=== PATIENT | female | born 1995 | race Caucasian/White ===

== ENCOUNTER 2016-11-29 18:34 | Emergency (ER) | payer BC, OTHER ==
[2016-11-29 18:42] VITALS: BMI 29.6
--- NOTE | 2016-11-29 19:38 | DR.GENAD ---
HPI - PCP Primary Care Physician: Broderick - Complaint/Symptoms Chief Complaint Doctors Comments: patient c/o right ear pain and rhinorrhea. Chief Complaint:: "I have been having an earache today really bad today. I have had some sinus issues for a while now though." Self Treatment fo Chief Complaint: Pt states that she has some rx eardrops and that she has had sinus issues for a while now. She states that she thinks she has had on and off fever - Source History Provided: Patient - Mode of Arrival Mode of Arrival: Ambulatory - Timing Onset of Chief Complaint: 11/29/16 PMH - PMH Past Medical History: No Past Surgical History: No - Family History History of Family Medical Conditions: Yes Family Medical History: Diabetes Mellitus, Hypertension - Social History Does patient currently use any type of tobacco product: No Have you used tobacco products in the last 12 months: No Type of Tobacco Use: None Does any household member use tobacco: No Alcohol Use: None Do you use any recreational Drugs:: No Lives With: Family Lives Where: Home - infectious screening In the last 2 months have you had wt loss of >10#?: NO Have you had fever, night sweats or hemotysis?: No Have you traveled outside the country in the last 6 months?: No Isolation: Standard ROS - Review of Systems Eyes: No Symptoms Reported ENTM: No Symptoms Reported Respiratoy: No Symptoms Reported Cardiovascular: No Symptoms Reported Gastrointestinal/Abdominal: No Symptoms Reported Genitourinary: No Symptoms Reported Neurological: No Symptoms Reported Musculoskeletal: No Symptoms Reported Integumentary: No Symptoms Reported Hematologic/Lymphatic: No Symptoms Reported Endocrine: No Symptoms Reported Psychiatric: No Symptoms Reported All Other Systems: Reviewed and Negative PE - Vital Signs Vitals: Temperature 99.2 F Pulse Rate 129 Respiratory Rate 18 Blood Pressure 123/79 O2 Sat by Pulse Oximetry 98 - General Limitations: No Limitations General Appearance: Alert, In No Apparent Distress - Head Head Exam: Normal Inspection, Atraumatic - Eyes Eye exam: PERRL, EOMI - ENT ENT Exam: Normal Exam, TM's Normal Bilaterally External Ear Exam: Normal External Inspection, Pain with Movement (right). negative: Auricular Trauma, Mastoid Tenderness TM/Canal Exam: Bilateral Normal Nose Exam: Other (rhinorrhea) Mouth Exam: Normal Inspection Throat Exam: Normal Inspection - Neck Neck Exam: Normal Inspection - Chest Chest Inspection: Normal Inspection - Respiratory Respiratory Exam: Normal Lung Sounds Bilat Respiratory Exam: Bilateral Clear to Auscultation - Cardiovascular Cardiovascular Exam: Regular Rate, Normal Rhythm - Abdominal Exam Abdominal Exam: Normal Inspection Abdominal Tenderness: negative: RUQ, RLQ, LUQ, LLQ, Epigastrium, Suprapubic, Diffuse, Mild, Moderate, Severe, Other - Extremities Extremities Exam: Normal Inspection, Full ROM - Back Back Exam: Normal Inspection - Neurologic Neurological Exam: Alert, Oriented X3 - Diagnosis Discharge Problem: Otitis externa Qualifiers: Otitis externa type: diffuse Laterality: right Chronicity: acute Qualified Code (s): H60.311 - Diffuse otitis externa, right ear Upper respiratory infection Qualifiers: URI type: unspecified viral URI Qualified Code(s): J06.9 - Acute upper respiratory infection, unspecified; B97.89 - Other viral agents as the cause of diseases classified elsewhere - Discharge Plan Condition: Stable - Follow ups/Referrals Follow ups/Referrals: BRANDY NÚÑEZ [Primary Care Provider] - 3 days - Instructions
[2016-11-29] MEDS ORDERED: AMOXIL CAP 500 MG PO ONE ×2 (19:41→19:45)
[2016-11-29] MEDS ORDERED: TYLENOL #3 TAB (W/CODEINE) PO ONE ×2 (19:42→19:44)
[2016-11-29 20:15] VITALS: BP 125/74
== END 2016-11-29 20:10 | disposition home or self-care (01) ==
LOC: ER 18:46
DX: J06.9 Acute upper respiratory infection, unspecified (principal); H60.311 Diffuse otitis externa, right ear
CPT/HCPCS: 99282